=== PATIENT | female | born 1930 | race Caucasian/White ===

== ENCOUNTER 2017-05-28 12:45 | Emergency (ER) | payer MEDICARE ==
[~2017-05-28 12:45] MED LIST: ALBUTEROL IH; ALPR0.5T PO; ASCO500T9 PO; ASPI-1181 PO; AZIL1TAB2 PO; CLON0.1T PO; CLON0.2T PO; CLOP75TA14 PO; CYAN250010 PO; DIGOXIN PO; DILT240C94 PO; FLUT100D3 IH; GABA-529 PO; GLUC-172 PO; GLUC100019 PO; INSU200I SQ; INSU3INS3 SQ; IRON18TA PO; IRON1CAP31 PO; ISOSORBIDE ER PO; LEVO100T4 PO; LEVO5TAB29 PO; MAGNESIUM PO; METH10CA PO; METO100T7 PO; MOME17N NS; OLOP30.5 NS; OMEP1CAP24 PO; ROSU10TA PO; SPIRIVA IH; ZALE10CA PO
[2017-08-22] MEDS ORDERED: CLOP75TA14 PO (13:57)
[2017-08-22] MEDS ORDERED: METH10CA PO (13:57)
[2017-08-22] MEDS ORDERED: INSU3INS3 SQ (13:57)
[2017-08-22] MEDS ORDERED: ISOS60TA4 PO (13:57)
[2017-08-22] MEDS ORDERED: ASPI-1197 PO (13:57)
[2017-08-22] MEDS ORDERED: PATANASE IH (13:57)
[2017-08-22] MEDS ORDERED: INSU200I SQ (13:57)
[2017-08-22] MEDS ORDERED: CLON0.1T PO (13:57)
[2017-08-22] MEDS ORDERED: PATANASE NASAL (14:06)
[2017-08-22] MEDS ORDERED: SERT50TA12 PO (14:07)
[2017-08-22] MEDS ORDERED: MAGNESIUM PO (14:09)
[2017-08-22] MEDS ORDERED: OMEGA 3 PO (14:13)
[2017-08-22] MEDS ORDERED: CLON0.2T PO (14:13)
[2017-08-22] MEDS ORDERED: MULTIVITAMIN PO (14:13)
== END 2017-05-28 14:26 | disposition home or self-care (01) ==
LOC: EDH 12:45
DX: M79.674 Pain in right toe(s) (principal); M79.671 Pain in right foot; Z98.890 Other specified postprocedural states; Z88.0 Allergy status to penicillin; Z88.1 Allergy status to other antibiotic agents; Z88.8 Allergy status to other drugs, medicaments and biological substances
CPT/HCPCS: 73630

== ENCOUNTER → 2017-07-07 | Outpatient (CLI) | payer MEDICARE ==
[~2017-07-07] MED LIST changes: +ASPI-1197 PO; +ASPI-555 PO; +DIGO125T17 PO; +ISOS60TA4 PO; +MULTIVITAMIN PO; +OMEGA 3 PO; +PATANASE IH; +PATANASE NASAL; +SERT50TA12 PO
== END | disposition home or self-care (01) ==
LOC: OIH 13:27
PROVIDERS: ATTEND Internal Medicine Cardiovascular Disease
DX: G31.9 Degenerative disease of nervous system, unspecified (principal); R55 Syncope and collapse
CPT/HCPCS: 70450

== ENCOUNTER → 2017-07-11 | Outpatient (CLI) | payer MEDICARE | LOC: SHCH 10:43 | PROVIDERS: ATTEND Internal Medicine Cardiovascular Disease | DX: I07.1 Rheumatic tricuspid insufficiency (principal); I70.0 Atherosclerosis of aorta; I35.0 Nonrheumatic aortic (valve) stenosis | CPT/HCPCS: 93306 ==

== ENCOUNTER → 2017-07-21 | Outpatient (CLI) | payer MEDICARE ==
[~2017-07-21] MED LIST changes: +REGADENOSON 0.4 MG/5 ML PF SYG IVP SCH
== END | disposition home or self-care (01) ==
LOC: SHCH 15:04
PROVIDERS: ATTEND Internal Medicine Cardiovascular Disease
DX: I10 Essential (primary) hypertension (principal); I34.0 Nonrheumatic mitral (valve) insufficiency
CPT/HCPCS: 78452; 93017; 96374; A9500 ×2; J2785

== ENCOUNTER 2017-08-23 05:35 | Observation (INO) | payer MEDICARE ==
[2017-08-22 11:52] LABS: BASOPHILS % (AUTO) 1.3 % (0.0-5.0); EOSINOPHILS % (AUTO) 1.6 % (0.0-8.0); HEMATOCRIT 36.5 % (36-48); LYMPHOCYTES % (AUTO) 20.9 % (21.0-51.0); MEAN CORPUSCULAR HEMOGLOBIN 29.4 pg (27.0-33.0); MEAN CORPUSCULAR HGB CONC 33.9 g/dL (32.0-36.0); MEAN CORPUSCULAR VOLUME 86.9 fL (79-99); MONOCYTES % (AUTO) 6.3 % (3.0-13.0); NEUTROPHILS % (AUTO) 69.9 % (40.0-77.0); PLATELET COUNT (AUTO) 183 K/uL (130-400); RED CELL DISTRIBUTION WIDTH 14.5 % (11.0-15.5); WHITE BLOOD COUNT (AUTO) 5.3 K/uL (4.8-10.8)
[2017-08-22 12:00] LABS: APPEARANCE,URINE Clear (CLEAR); BILIRUBIN,URINE Negative (NEGATIVE); COLOR,URINE Dark Yellow (YELLOW); GLUCOSE, URINE (UA) Negative (NEGATIVE); KETONES,URINE Negative (NEGATIVE); LEUKOCYTE ESTERASE ,URINE Small (NEGATIVE); NITRATE,URINE Negative (NEGATIVE); OCCULT BLOOD,URINE Negative (NEGATIVE); PH,URINE 6.5 (5.0-8.0); PROTEIN,URINE Negative (NEGATIVE)
[2017-08-22 12:01] LABS: CREATININE 1.4 mg/dL (0.5-1.5); POTASSIUM 3.9 mmol/L (3.5-5.1)
[2017-08-22 12:13] LABS: INR 1.02 (0.85-1.15); PARTIAL THROMBOPLASTIN TIME 23.7 SEC (26.3-35.5); PROTHROMBIN TIME 10.7 SEC (9.6-11.6)
[2017-08-22 12:23] LABS: BACTERIA,URINE Rare /HPF (None Seen); RBC,URINE 0-1 /HPF (0-1); SQUAMOUS EPITHELIAL CELL,UR Rare /HPF (0-2); WBC,URINE 0-1 /HPF (0-1)
[2017-08-22 12:40] VITALS: BP 114/60
[2017-08-23] VITALS (10 sets, daily range): BP systolic 113–139; BP diastolic 56–72
[~2017-08-23] VITALS: Ht 165.1 cm; Wt 73.0 kg
[~2017-08-23 05:35] MED LIST changes: -ALBUTEROL IH; -ASCO500T9 PO; -ASPI-1181 PO; -ASPI-555 PO; -CYAN250010 PO; -DIGO125T17 PO; -GLUC100019 PO; -IRON18TA PO; -ISOSORBIDE ER PO; -OLOP30.5 NS; -PATANASE IH; -REGADENOSON 0.4 MG/5 ML PF SYG IVP SCH
[2017-08-23] MEDS ORDERED: SODIUM CHLORIDE 0.9% 500ML 500 ML IV SCH (06:00)
[2017-08-23] MEDS ORDERED: SODIUM CHLORIDE 0.9% 1000ML 1,000 ML IV ONE (07:54)
[2017-08-23] MEDS ORDERED: ISOVUE-370 50ML VIAL IV ONE (07:55)
[2017-08-23] MEDS ORDERED: MIDAZOLAM HCL 1 MG/ML 2ML VIAL ONE (07:55)
[2017-08-23] MEDS ORDERED: SODIUM BICARB 50MEQ 50ML VIAL ONE (07:55)
[2017-08-23] MEDS ORDERED: MEPERIDINE-PF 25 MG/ML SYG ONE (07:55)
[2017-08-23] MEDS ORDERED: IOPAMIDOL-370 100 ML VIAL IV ONE (07:55)
[2017-08-23] MEDS ORDERED: HEPARIN SODIUM 1000UNIT/ML 10ML VIAL ONE (07:55)
[2017-08-23] MEDS ORDERED: LIDOCAINE HCL 2% 20ML ONE (07:56)
[2017-08-23] MEDS ORDERED: NITROGLYCERIN 5 MG/ML 10 ML VIAL IV ONE (08:22)
[2017-08-23] MEDS ORDERED: ASPIRIN 81MG TAB.CHEW ONE (09:27)
[2017-08-23] MEDS ORDERED: CLOPIDOGREL BISULFATE 75 MG TAB ONE (09:27)
[2017-08-23] MEDS: SODIUM CHLORIDE 0.9% 1000ML 1,000 ML IV SCH ×3 (09:37→20:44)
[2017-08-23] MEDS ORDERED: CLONIDINE HCL 0.2 MG TABLET PO PRN (09:45)
[2017-08-23] MEDS ORDERED: ALPRAZOLAM 0.5 MG TABLET PO SCH (09:45)
[2017-08-23] MEDS ORDERED: ONDANSETRON HCL MDV 20ML 2 MG/ML VIAL IVP PRN (09:45)
[2017-08-23] MEDS ORDERED: DEXTROSE 50%-WATER 50 ML DISP.SYRIN IV PRN (09:45)
[2017-08-23] MEDS ORDERED: GLUCAGON 1MG KIT 1 MG ML IM PRN (09:45)
[2017-08-23 11:22] LABS: DIGOXIN 1.99 ng/mL (0.50-2.00)
[2017-08-23] MEDS: PANTOPRAZOLE SODIUM 40 MG TABLET.DR PO SCH (11:34)
[2017-08-23] MEDS: INSULIN HUMULIN R 100 UNIT/ML 3ML SQ SCH ×3 (11:52→21:24)
[2017-08-23] MEDS: INSULIN LISPRO 100 UNIT/ML 3ML SQ SCH ×2 (12:00→18:41)
[2017-08-23] MEDS: CLONIDINE HCL 0.1 MG TABLET PO SCH ×2 (14:30→21:29)
[2017-08-23] MEDS: GABAPENTIN 100 MG CAPSULE PO SCH ×2 (14:31→21:30)
[2017-08-23] MEDS: IPRATROPIUM 0.5 MG/2.5 ML INH IH SCH ×2 (18:13→23:50)
[2017-08-23] MEDS: BUDESONIDE 0.5 MG/2 ML INH IH SCH (18:13)
[2017-08-23] MEDS ORDERED: ZALEPLON 10 MG PO SCH (21:00)
[2017-08-23] MEDS ORDERED: ASPIRIN 81MG TAB.CHEW PO SCH (21:00)
[2017-08-23] MEDS: METOPROLOL SUCCINATE 100 MG PO SCH (21:00)
[2017-08-23] MEDS: MAGNESIUM 250 MG PO SCH (21:00)
[2017-08-23] MEDS ORDERED: ATORVASTATIN CALCIUM 20 MG TABLET PO SCH (21:00)
[2017-08-23] MEDS ORDERED: ISOSORBIDE MONO 60 MG TAB.SR PO SCH (21:00)
[2017-08-23] MEDS ORDERED: SERTRALINE HCL 50 MG TABLET PO SCH (21:00)
[2017-08-23] MEDS ORDERED: LEVOCETIRIZINE DIHYDROCHLORIDE 5 MG PO SCH (21:00)
[2017-08-23] MEDS: INSULIN GLARGINE 100 UNITS/ML 10 ML VIAL SQ SCH (21:23)
[2017-08-23] MEDS: FE FUMARATE/FA/MV, MIN COMB#15 1 TAB PO SCH (21:28)
[2017-08-24 03:57] VITALS: BP 109/55
[2017-08-24 04:33] LABS: HEMATOCRIT 33.8 % (36-48); MEAN CORPUSCULAR HEMOGLOBIN 30.2 pg (27.0-33.0); MEAN CORPUSCULAR HGB CONC 34.9 g/dL (32.0-36.0); MEAN CORPUSCULAR VOLUME 86.4 fL (79-99); NUCLEATED RED BLOOD CELLS 0.1 % (0.0-0.19); PLATELET COUNT (AUTO) 170 K/uL (130-400); RED BLOOD CELL COUNT(AUTO) 3.91 MIL/uL (4.00-5.50); RED CELL DISTRIBUTION WIDTH 14.6 % (11.0-15.5)
[2017-08-24 04:49] LABS: CREATININE 1.4 mg/dL (0.5-1.5); POTASSIUM 3.3 mmol/L (3.5-5.1)
[2017-08-24] MEDS: INSULIN HUMULIN R 100 UNIT/ML 3ML SQ SCH (06:09)
[2017-08-24] MEDS: SODIUM CHLORIDE 0.9% 1000ML 1,000 ML IV SCH (06:09)
[2017-08-24] MEDS ORDERED: LEVOTHYROXINE 100 MCG TABLET PO SCH (06:30)
[2017-08-24] MEDS: IPRATROPIUM 0.5 MG/2.5 ML INH IH SCH ×2 (06:52→11:19)
[2017-08-24] MEDS: BUDESONIDE 0.5 MG/2 ML INH IH SCH (06:58)
[2017-08-24] MEDS ORDERED: DIGO125T17 PO (07:02)
[2017-08-24] MEDS ORDERED: ASPI-555 PO (07:02)
[2017-08-24 07:10] VITALS: BP 122/60
[2017-08-24] MEDS ORDERED: PATANASE NASAL SCH (09:00)
[2017-08-24] MEDS ORDERED: CHLORTHALIDONE PO SCH (09:00)
[2017-08-24] MEDS: MAGNESIUM 250 MG PO SCH (09:00)
[2017-08-24] MEDS ORDERED: DILTIAZEM HCL 120 MG CAP.SR.24H PO SCH (09:00)
[2017-08-24] MEDS ORDERED: METHYLTESTOSTERONE PO SCH (09:00)
[2017-08-24] MEDS ORDERED: GLUCOSAMINE-CHONDROITIN PO SCH (09:00)
[2017-08-24] MEDS ORDERED: AZILSARTAN MED PO SCH (09:00)
[2017-08-24] MEDS: METOPROLOL SUCCINATE 100 MG PO SCH (09:00)
[2017-08-24] MEDS ORDERED: MULTIVITAMIN TABLET PO SCH (09:00)
[2017-08-24] MEDS ORDERED: FLUTICASONE PROPIONATE 50MCG/SPRAY 16 GM BOTTLE NS SCH (09:00)
[2017-08-24] MEDS ORDERED: CLOPIDOGREL BISULFATE 75 MG TAB PO SCH (09:00)
[2017-08-24] MEDS ORDERED: FISH OIL 1000 MG/CAP PO SCH (09:00)
[2017-08-24] MEDS: GABAPENTIN 100 MG CAPSULE PO SCH (09:28)
[2017-08-24 09:29] VITALS: BP 122/60
[2017-08-24] MEDS: CLONIDINE HCL 0.1 MG TABLET PO SCH (09:29)
[2017-08-24] MEDS: FE FUMARATE/FA/MV, MIN COMB#15 1 TAB PO SCH (09:29)
[2017-08-24] MEDS: PANTOPRAZOLE SODIUM 40 MG TABLET.DR PO SCH (09:29)
[2017-08-24] MEDS: INSULIN GLARGINE 100 UNITS/ML 10 ML VIAL SQ SCH (09:34)
[2017-08-24] MEDS: INSULIN LISPRO 100 UNIT/ML 3ML SQ SCH (09:35)
[2017-08-24] MEDS ORDERED: DIGOXIN 125 MCG TABLET PO SCH (16:00)
[2017-08-25] MEDS ORDERED: DIGOXIN 250 MCG TABLET PO SCH (16:00)
== END 2017-08-24 11:45 | disposition home or self-care (01) ==
LOC: SUH 05:35 → DAH 05:35 → SUH 05:36 → 2DH 10:08
PROVIDERS: ADMIT Internal Medicine Cardiovascular Disease; ATTEND Internal Medicine Cardiovascular Disease
DX: I25.110 Atherosclerotic heart disease of native coronary artery with unstable angina pectoris (principal); E11.9 Type 2 diabetes mellitus without complications; E78.5 Hyperlipidemia, unspecified; E89.0 Postprocedural hypothyroidism; I10 Essential (primary) hypertension; I35.0 Nonrheumatic aortic (valve) stenosis; M19.90 Unspecified osteoarthritis, unspecified site; T82.855A Stenosis of coronary artery stent, initial encounter; Y83.1 Surgical operation with implant of artificial internal device as the cause of abnormal reaction of the patient, or of later complication, without mention of misadventure at the time of the procedure; Z88.9 Allergy status to unspecified drugs, medicaments and biological substances; Z90.49 Acquired absence of other specified parts of digestive tract; Z95.0 Presence of cardiac pacemaker; Z79.82 Long term (current) use of aspirin; Z79.899 Other long term (current) drug therapy; Z95.5 Presence of coronary angioplasty implant and graft; Z95.1 Presence of aortocoronary bypass graft
CPT/HCPCS: 36415 ×3; 71045; 80048 ×2; 80061; 80162; 81001; 82948 ×6; 85025; 85027; 85347 ×2; 85610; 85730; 92921; 93005; 93458; 94640 ×6; 94664; 96372 ×2; C1725; C1760; C1769 ×2; C1874; C1887; C1894 ×2; C9600; G0378 ×26; J1644; J1815 ×2; J3490 ×3; J7030 ×2; Q9967 ×2; J2175; J2250

== ENCOUNTER → 2017-11-18 | Outpatient (CLI) | payer MEDICARE | END | disposition home or self-care (01) | LOC: RAH 12:38 | PROVIDERS: ATTEND Internal Medicine Cardiovascular Disease | DX: R60.0 Localized edema (principal) | CPT/HCPCS: 93970 ==

== ENCOUNTER → 2018-01-27 | Outpatient (CLI) | payer MEDICARE | END | disposition home or self-care (01) | LOC: SHCH 09:21 | PROVIDERS: ATTEND Internal Medicine Cardiovascular Disease | DX: I08.0 Rheumatic disorders of both mitral and aortic valves (principal); I10 Essential (primary) hypertension; Z95.0 Presence of cardiac pacemaker | CPT/HCPCS: 93306 ==

== ENCOUNTER 2018-02-05 21:04 | Emergency (ER) | payer MEDICARE ==
[2018-02-05] MEDS ORDERED: TETANUS/DIPHTHERIA TOXOID [ADULT] 0.5 ML VIAL IM ONE (22:47)
== END 2018-02-06 01:50 | disposition home or self-care (01) ==
LOC: EDH 21:04
DX: S60.222A Contusion of left hand, initial encounter (principal); S90.31XA Contusion of right foot, initial encounter; M25.551 Pain in right hip; M25.511 Pain in right shoulder; R51 Headache; I10 Essential (primary) hypertension; E11.9 Type 2 diabetes mellitus without complications; J44.9 Chronic obstructive pulmonary disease, unspecified; Z88.6 Allergy status to analgesic agent; Z88.0 Allergy status to penicillin; Z88.1 Allergy status to other antibiotic agents; Z88.8 Allergy status to other drugs, medicaments and biological substances; Z86.73 Personal history of transient ischemic attack (TIA), and cerebral infarction without residual deficits; Z98.890 Other specified postprocedural states; W08.XXXA Fall from other furniture, initial encounter; Y93.89 Activity, other specified; Y92.89 Other specified places as the place of occurrence of the external cause; Y99.8 Other external cause status
CPT/HCPCS: 73030; 73080; 73110; 73502; 73630; 90471; 90714

== ENCOUNTER → 2018-05-03 | Outpatient (CLI) | payer MEDICARE | END | disposition home or self-care (01) | LOC: RAH 11:21 | PROVIDERS: ATTEND Nurse Practitioner Family | DX: I63.9 Cerebral infarction, unspecified (principal); Z86.73 Personal history of transient ischemic attack (TIA), and cerebral infarction without residual deficits | CPT/HCPCS: 70450 ==

== ENCOUNTER → 2018-05-04 | Outpatient (CLI) | payer MEDICARE | END | disposition home or self-care (01) | LOC: RAH 10:15 | PROVIDERS: ATTEND Nurse Practitioner Family | DX: R13.10 Dysphagia, unspecified (principal); Z86.73 Personal history of transient ischemic attack (TIA), and cerebral infarction without residual deficits | CPT/HCPCS: 74230; 92611 ==

== ENCOUNTER 2018-05-27 13:53 | Emergency (ER) | payer MEDICARE ==
[2018-05-27 15:58] LABS: BASOPHILS % (AUTO) 0.8 % (0.0-5.0); EOSINOPHILS % (AUTO) 0.7 % (0.0-8.0); HEMATOCRIT 37.6 % (36-48); LYMPHOCYTES % (AUTO) 15.9 % (21.0-51.0); MEAN CORPUSCULAR HEMOGLOBIN 30.2 pg (27.0-33.0); MEAN CORPUSCULAR HGB CONC 33.8 g/dL (32.0-36.0); MEAN CORPUSCULAR VOLUME 89.5 fL (79-99); MONOCYTES % (AUTO) 5.8 % (3.0-13.0); NEUTROPHILS % (AUTO) 76.8 % (40.0-77.0); PLATELET COUNT (AUTO) 222 K/uL (130-400); RED CELL DISTRIBUTION WIDTH 15.5 % (11.0-15.5); WHITE BLOOD COUNT (AUTO) 7.6 K/uL (4.8-10.8)
[2018-05-27 16:12] LABS: CREATININE 1.4 mg/dL (0.5-1.5); POTASSIUM 3.9 mmol/L (3.5-5.1)
[2018-05-27 16:13] LABS: ALBUMIN 3.5 g/dL (3.5-5.0); BILIRUBIN,TOTAL 0.5 mg/dL (0.2-1.0); TOTAL PROTEIN, SERUM 7.3 g/dL (6.0-8.3)
[2018-05-27 16:29] LABS: B-TYPE NATRIURETIC PEPTIDE 149 pg/mL (0-100)
[2018-05-27] MEDS ORDERED: METHYLPREDNISOLONE SOD SUCC 125MG/2ML VIAL ONE (17:13)
== END 2018-05-27 17:26 | disposition home or self-care (01) ==
LOC: EDH 13:53
DX: R05 Cough (principal); I10 Essential (primary) hypertension; J44.9 Chronic obstructive pulmonary disease, unspecified; E11.9 Type 2 diabetes mellitus without complications; Z86.73 Personal history of transient ischemic attack (TIA), and cerebral infarction without residual deficits; Z90.49 Acquired absence of other specified parts of digestive tract; Z90.89 Acquired absence of other organs; Z95.1 Presence of aortocoronary bypass graft; Z87.891 Personal history of nicotine dependence; Z79.4 Long term (current) use of insulin; Z88.1 Allergy status to other antibiotic agents; Z88.0 Allergy status to penicillin; Z88.5 Allergy status to narcotic agent; Z88.8 Allergy status to other drugs, medicaments and biological substances
CPT/HCPCS: 36415; 71046; 80053; 83880; 84484; 85025; 93005; 96374; 99284; J2930

== ENCOUNTER → 2018-12-01 | Outpatient (CLI) | payer MEDICARE ==
[~2018-12-01] MED LIST changes: -ROSU10TA PO; +ROSU10TA22 PO
== END | disposition home or self-care (01) ==
LOC: SHCH 09:18
PROVIDERS: ATTEND Internal Medicine Cardiovascular Disease
DX: I65.23 Occlusion and stenosis of bilateral carotid arteries (principal); I73.9 Peripheral vascular disease, unspecified
CPT/HCPCS: 93880; 93925

== ENCOUNTER → 2019-01-02 | Outpatient (CLI) | payer MEDICARE | END | disposition home or self-care (01) | LOC: RAH 12:04 | PROVIDERS: ATTEND Internal Medicine | DX: J44.9 Chronic obstructive pulmonary disease, unspecified (principal); I10 Essential (primary) hypertension; J44.1 Chronic obstructive pulmonary disease with (acute) exacerbation; G47.33 Obstructive sleep apnea (adult) (pediatric); Z95.0 Presence of cardiac pacemaker | CPT/HCPCS: 71046 ==

== ENCOUNTER → 2019-01-31 | Outpatient (CLI) | payer MEDICARE, OTHER | END | disposition home or self-care (01) | LOC: RAH 09:30 | PROVIDERS: ATTEND Internal Medicine Cardiovascular Disease | DX: I11.9 Hypertensive heart disease without heart failure (principal); I35.0 Nonrheumatic aortic (valve) stenosis | CPT/HCPCS: 93306 ==

== ENCOUNTER 2019-02-23 05:46 | Day surgery (SDC) | payer MEDICARE ==
[2019-02-21 11:16] LABS: BASOPHILS % (AUTO) 0.8 % (0.0-5.0); EOSINOPHILS % (AUTO) 4.6 % (0.0-8.0); HEMATOCRIT 33.3 % (36-48); LYMPHOCYTES % (AUTO) 14.7 % (21.0-51.0); MEAN CORPUSCULAR HEMOGLOBIN 30.4 pg (27.0-33.0); MEAN CORPUSCULAR HGB CONC 35.3 g/dL (32.0-36.0); MEAN CORPUSCULAR VOLUME 86.1 fL (79-99); MONOCYTES % (AUTO) 5.6 % (3.0-13.0); NEUTROPHILS % (AUTO) 74.3 % (40.0-77.0); PLATELET COUNT (AUTO) 202 K/uL (130-400); RED BLOOD CELL COUNT(AUTO) 3.87 MIL/uL (4.00-5.50); RED CELL DISTRIBUTION WIDTH 14.8 % (11.0-15.5); WHITE BLOOD COUNT (AUTO) 6.7 K/uL (4.8-10.8)
[2019-02-21 11:23] LABS: CREATININE 1.3 mg/dL (0.5-1.5); POTASSIUM 4.2 mmol/L (3.5-5.1)
[2019-02-21 11:38] VITALS: BP 117/65
[2019-02-21 12:19] LABS: INR 1.05 (0.85-1.15); PARTIAL THROMBOPLASTIN TIME 25.9 SEC (26.3-35.5)
[2019-02-23] VITALS (12 sets, daily range): BP systolic 104–157; BP diastolic 48–75
[~2019-02-23] VITALS: Ht 161.3 cm; Wt 67.4 kg
[~2019-02-23 05:46] MED LIST changes: +ALBU0.63 IH; +BUDE10.2 IH; -CLON0.2T PO; +DEXL60CA3 PO; +DIGO125T87 PO; -DIGOXIN PO; -DILT240C94 PO; -FLUT100D3 IH; -METH10CA PO; -OMEP1CAP24 PO; +OZEMPIC SQ; -SERT50TA12 PO; +SODIUM CHLORIDE 0.9% 500ML 500 ML IV SCH; -SPIRIVA IH; +UBID100C45 PO; -ZALE10CA PO
[2019-02-23] MEDS ORDERED: MIDAZOLAM HCL 1 MG/ML 2ML VIAL ONE ×3 (07:16→08:20)
[2019-02-23] MEDS ORDERED: LIDOCAINE HCL 1% MDV 50ML VIAL ONE (07:16)
[2019-02-23] MEDS ORDERED: MEPERIDINE-PF 25 MG/ML SYG ONE ×3 (07:16→08:20)
[2019-02-23] MEDS ORDERED: BUPIVACAINE/PF 0.25% 30ML VIAL IJ ONE (07:17)
[2019-02-23] MEDS ORDERED: CLINDAMYCIN 600 MG/D5% WATER 100 ML IV ONE (07:17)
[2019-02-23] MEDS: SODIUM CHLORIDE 0.9% 1000ML 1,000 ML IV ONE (07:19)
[2019-02-23] MEDS ORDERED: THROMBIN-JMI 5000 UNIT/VIAL TP ONE (08:24)
[2019-02-23] MEDS ORDERED: OCTYL 2-CYANOACRYLATE 1 EACH TP ONE (08:48)
[2019-02-23] MEDS ORDERED: DEXTROSE 50%-WATER 50 ML DISP.SYRIN IV PRN (09:15)
[2019-02-23] MEDS: INSULIN HUMULIN R 100 UNIT/ML 3ML SQ SCH (11:53)
[2019-02-23] MEDS: TRAMADOL HCL 50 MG TABLET PO SCH (12:44)
[2019-02-23] MEDS: CLINDAMYCIN 600 MG/D5% WATER 50 ML IV SCH (13:25)
== END 2019-02-23 14:45 | disposition home or self-care (01) ==
LOC: DAH 05:46
PROVIDERS: ATTEND Internal Medicine Cardiovascular Disease
DX: Z45.010 Encounter for checking and testing of cardiac pacemaker pulse generator [battery] (principal); I10 Essential (primary) hypertension; E78.5 Hyperlipidemia, unspecified; E11.9 Type 2 diabetes mellitus without complications; M19.90 Unspecified osteoarthritis, unspecified site; E03.9 Hypothyroidism, unspecified; I48.91 Unspecified atrial fibrillation; Z79.82 Long term (current) use of aspirin; Z79.899 Other long term (current) drug therapy; Z79.84 Long term (current) use of oral hypoglycemic drugs; Z79.4 Long term (current) use of insulin; Z95.5 Presence of coronary angioplasty implant and graft; Z88.0 Allergy status to penicillin; Z88.8 Allergy status to other drugs, medicaments and biological substances; Z98.890 Other specified postprocedural states; Z88.1 Allergy status to other antibiotic agents; Z85.038 Personal history of other malignant neoplasm of large intestine; Z85.850 Personal history of malignant neoplasm of thyroid; Z82.49 Family history of ischemic heart disease and other diseases of the circulatory system; Z83.3 Family history of diabetes mellitus; Z91.048 Other nonmedicinal substance allergy status
CPT/HCPCS: 33228; 36415; 80048; 82948; 85025; 85610; 85730; 93005; A4215; A4216; A4221; A4222; A4223 ×3; A4606; C1786; J1815; J2175 ×3; J2250 ×3; J3490 ×5; J7030; 33227; 99156; 99157

== ENCOUNTER 2019-05-24 16:36 | Emergency (ER) | payer MEDICARE ==
[~2019-05-24 16:36] MED LIST changes: +DIGO125T71 PO; -DIGO125T87 PO; -SODIUM CHLORIDE 0.9% 500ML 500 ML IV SCH
[2019-05-24] MEDS ORDERED: KETOROLAC TROMETHAMINE 15MG/ML ONE (18:12)
[2019-05-24] MEDS ORDERED: DEXAMETHASONE SOD PHOSPHATE 4 MG/ML 1ML VIAL ONE (18:12)
== END 2019-05-24 18:41 | disposition home or self-care (01) ==
LOC: EDH 16:36
DX: G89.29 Other chronic pain (principal); J44.9 Chronic obstructive pulmonary disease, unspecified; E11.9 Type 2 diabetes mellitus without complications; I10 Essential (primary) hypertension; Z90.49 Acquired absence of other specified parts of digestive tract; Z90.89 Acquired absence of other organs; Z98.890 Other specified postprocedural states; Z88.6 Allergy status to analgesic agent; Z88.2 Allergy status to sulfonamides; Z88.1 Allergy status to other antibiotic agents; Z88.8 Allergy status to other drugs, medicaments and biological substances; Z88.0 Allergy status to penicillin
CPT/HCPCS: 96372 ×2; 99284; J1100; J1885

== ENCOUNTER 2020-06-20 09:15 | Emergency (ER) | payer MEDICARE ==
[~2020-06-20 09:15] MED LIST changes: +INSU100I14 SQ; -INSU200I SQ; +TIOT18CA3 IH; +ZALE5 PO
[2020-06-20] MEDS ORDERED: TRAMADOL HCL 50 MG TABLET ONE (09:40)
== END 2020-06-20 10:44 | disposition home or self-care (01) ==
LOC: EDH 09:15
DX: M25.571 Pain in right ankle and joints of right foot (principal); M19.90 Unspecified osteoarthritis, unspecified site; J44.9 Chronic obstructive pulmonary disease, unspecified; E11.9 Type 2 diabetes mellitus without complications; I10 Essential (primary) hypertension; Z90.49 Acquired absence of other specified parts of digestive tract; Z90.710 Acquired absence of both cervix and uterus; Z88.6 Allergy status to analgesic agent; Z88.2 Allergy status to sulfonamides; Z88.1 Allergy status to other antibiotic agents; Z88.8 Allergy status to other drugs, medicaments and biological substances; Z88.0 Allergy status to penicillin
CPT/HCPCS: 73600; 93971

== ENCOUNTER → 2020-07-01 | Outpatient (CLI) | payer MEDICARE ==
[~2020-07-01] MED LIST changes: -ISOS60TA4 PO; +ISOS60TA77 PO; -ZALE5 PO; +ZALE5CAP PO
== END | disposition home or self-care (01) ==
LOC: RAH 14:31
PROVIDERS: ATTEND Internal Medicine Cardiovascular Disease
DX: G31.9 Degenerative disease of nervous system, unspecified (principal); I67.82 Cerebral ischemia
CPT/HCPCS: 70450

== ENCOUNTER → 2020-08-12 | Outpatient (CLI) | payer MEDICARE | END | disposition home or self-care (01) | LOC: SHCH 10:34 | PROVIDERS: ATTEND Internal Medicine Cardiovascular Disease | DX: I08.1 Rheumatic disorders of both mitral and tricuspid valves (principal); R09.89 Other specified symptoms and signs involving the circulatory and respiratory systems; I48.91 Unspecified atrial fibrillation; I10 Essential (primary) hypertension; E78.5 Hyperlipidemia, unspecified; E11.9 Type 2 diabetes mellitus without complications | CPT/HCPCS: 93306; 93356; 93880 ==